=== PATIENT | male | born 2000 | race Two or more races ===

== ENCOUNTER → 2020-12-16 | Emergency (ER) | payer OTHER ==
[~2020-12-16] VITALS: Ht 152.4 cm; Wt 63.5 kg
[~2020-12-16] MED LIST: LEXAPRO5 MG
== END | disposition left against medical advice (07) ==
LOC: ER 23:13
DX: S00.03XA Contusion of scalp, initial encounter (principal); W18.09XA Striking against other object with subsequent fall, initial encounter; Y93.89 Activity, other specified; Y92.488 Other paved roadways as the place of occurrence of the external cause; Y99.8 Other external cause status